=== PATIENT | male | born 1965 | race Caucasian/White ===

== ENCOUNTER 2023-05-30 10:38 | Emergency (ER) | payer MEDICARE, MEDICAID ==
[~2023-05-30] VITALS: Ht 180.3 cm; Wt 100.0 kg
[~2023-05-30 10:38] MED LIST: ASPI-10 PO; ATEN25TA PO; CLOZ100T68 PO; DOCU-361 PO; IBUP-1985 PO; LANTUS SQ; METF-438 PO; MULT-1085 PO; NATE60TA PO; ROYA500C PO; SIMV-42 PO; SITA100T15 PO; VITA1CAP PO
[2023-05-30 10:40] VITALS: BP 117/72; PULSE 91; RESP 18; TEMP 98.7; O2SAT 98
[2023-05-30] MEDS ORDERED: DOXYCYCLINE 100MG CAPSULE PO STA (11:32)
[2023-05-30] MEDS ORDERED: cephalexin 500mg capsule PO ONE (11:35)
[2023-05-30] MEDS ORDERED: CEPH250T PO (11:53)
[2023-05-30] MEDS ORDERED: DOXY-356 PO (11:53)
== END 2023-05-30 12:16 | disposition home or self-care (01) ==
LOC: ER 10:38
DX: S50.911A Unspecified superficial injury of right forearm, initial encounter (principal); E78.00 Pure hypercholesterolemia, unspecified; I10 Essential (primary) hypertension; E11.9 Type 2 diabetes mellitus without complications; Z88.5 Allergy status to narcotic agent; Z91.018 Allergy to other foods; Z79.82 Long term (current) use of aspirin; Z79.1 Long term (current) use of non-steroidal anti-inflammatories (NSAID); Z79.899 Other long term (current) drug therapy; X58.XXXA Exposure to other specified factors, initial encounter; Y93.89 Activity, other specified; Y92.89 Other specified places as the place of occurrence of the external cause; Y99.8 Other external cause status
CPT/HCPCS: 87070; 99283

== ENCOUNTER 2023-12-22 09:49 | Inpatient (IN) | payer MEDICARE, MEDICAID ==
[~2023-12-22] VITALS: Ht 182.9 cm; Wt 82.0 kg
[2023-12-22] MEDS ORDERED: heparin 10,000 units/1 ML INJ IV PRN (10:05)
[2023-12-22] MEDS ORDERED: heparin 10,000 units/1 ML INJ IV ONE ×2 (10:05→10:15)
[2023-12-22] MEDS ORDERED: heparin 25,000 UNIT/250ml bag 250 ML IV PRN (10:05)
[2023-12-22] MEDS: ceFAZolin/D5W- 1GM premix 50 ML IV ONE (10:31)
[2023-12-22] MEDS: normal saline 1000ML IV soln IVB ONE (10:31)
[2023-12-22] MEDS: TETanus/Pertussis (Acell)/Diphther VAC/PF (Tdap-Adult) 0.5ml syringe IMVAC ONE (10:33)
[2023-12-22 10:41] LABS: BASOPHILS % (AUTO) 0.1 % (0-1); EOSINOPHILS % (AUTO) 0 % (0-6); HEMATOCRIT 38.7 % (42.0-52.0); HEMOGLOBIN 12.9 g/dl (14.0-17.9); LYMPHOCYTES # (AUTO) 0.9 X10'3 (1.1-4.8); MEAN CORPUSCULAR HEMOGLOBIN 31.7 PG (27.0-31.0); MEAN CORPUSCULAR HGB CONC 33.4 g/dL (33.0-36.5); MEAN CORPUSCULAR VOLUME 94.8 FL (78-98); MEAN PLATELET VOLUME 8.3 FL (7.4-10.4); MONOCYTES # (AUTO) 0.9 X10'3 (0-0.9); MONOCYTES % (AUTO) 6.1 % (2-12); NEUTROPHILS # (AUTO) 13.3 X10'3 (1.8-7.7); NEUTROPHILS % (AUTO) 87.8 % (42-75); PLATELET COUNT 171 X10'3 (140-440); RED BLOOD COUNT 4.09 X10'6 (4.70-6.10); RED CELL DISTRIBUTION WIDTH 13.1 % (11.5-14.5); WHITE BLOOD COUNT 15.1 X10'3 (4.5-11.0)
[2023-12-22 10:54] LABS: APTT 26 SECONDS (22-32); INR 0.9 INR; PROTHROMBIN TIME 10.2 SECONDS (9.0-12.0)
[2023-12-22 10:56] LABS: ALBUMIN 3.4 G/DL (3.4-5.0); ANION GAP 16 (8-16); BLOOD UREA NITROGEN 19 MG/DL (7-18); BUN/CREATININE RATIO 21.3 (10.0-20.0); CALCIUM 8.1 MG/DL (8.5-10.1); CHLORIDE 102 MMOL/L (99-107); CREATININE 0.89 MG/DL (0.60-1.10); ETHANOL < 10 MG/DL (<10); GLUCOSE 121 MG/DL (70-104); POTASSIUM 4.2 MMOL/L (3.5-5.1); SODIUM 138 MMOL/L (135-145); TOTAL CARBON DIOXIDE 20.3 MMOL/L (24-32); eCRCL 99 ML/MIN; eGFR 88 ML/MIN
[2023-12-22] MEDS: normal saline 1000ml 1,000 ML IV ONE ×2 (13:34→18:48)
[2023-12-22 13:39] LABS: BILIRUBIN,URINE NEGATIVE (Neg); CLARITY,URINE CLEAR (Clear); COLOR,URINE YELLOW (Yellow); GLUCOSE, URINE NEGATIVE (Neg); KETONES,URINE >=80 mg/dl (Neg); LEUKOCYTE ESTERASE ,URINE NEGATIVE (Neg); NITRITES, URINE NEGATIVE (Neg); OCCULT BLOOD,URINE MODERATE (Neg); PH,URINE 5.5 (4.8-8.0); PROTEIN,URINE NEGATIVE (Neg); UROBILINOGEN,URINE 0.2 E.U/dL (0.2-1.0)
[2023-12-22 13:40] LABS: UA COLLECTION TYPE NON-SPECIFIED
[2023-12-22 13:47] LABS: URINE AMPHETAMINE SCREEN NEGATIVE (Neg); URINE BARBITUATE SCREEN NEGATIVE (Neg); URINE BENZODIAZEPINES SCREEN NEGATIVE (Neg); URINE CANNABINOID SCREEN NEGATIVE (Neg); URINE COCAINE SCREEN NEGATIVE (Neg); URINE METHADONE SCREEN NEGATIVE (Neg); URINE OPIATE SCREEN NEGATIVE (Neg); URINE PHENCYCLIDINE SCREEN NEGATIVE (Neg)
[2023-12-22 13:48] LABS: RBC,URINE 20-50 /HPF (0-2)
[2023-12-22 13:49] LABS: BACTERIA,URINE NONE SEEN /HPF (Neg); SQUAMOUS EPITHELIAL CELL,UR FEW /LPF (FEW)
[2023-12-22 13:51] LABS: WBC CLUMPS,URINE FEW /HPF (NEGATIVE)
[2023-12-22] MEDS: LIDOcaine 1% W/epiNEPHrine 1:100,000 20ml vial SQ ONE (13:59)
[2023-12-22 14:01] LABS: WBC,URINE 0-4 /HPF (0-4)
[2023-12-22 14:02] LABS: RENAL CELLS, URINE MODERATE /HPF
[2023-12-22 16:21] LABS: BASOPHILS % (AUTO) 0.2 % (0-1); EOSINOPHILS % (AUTO) 0 % (0-6); HEMATOCRIT 35.4 % (42.0-52.0); HEMOGLOBIN 11.8 g/dl (14.0-17.9); LYMPHOCYTES # (AUTO) 1.3 X10'3 (1.1-4.8); LYMPHOCYTES % (AUTO) 9.9 % (21-51); MEAN CORPUSCULAR HEMOGLOBIN 31.7 PG (27.0-31.0); MEAN CORPUSCULAR HGB CONC 33.4 g/dL (33.0-36.5); MONOCYTES % (AUTO) 7.2 % (2-12); NEUTROPHILS # (AUTO) 10.9 X10'3 (1.8-7.7); NEUTROPHILS % (AUTO) 82.7 % (42-75); PLATELET COUNT 154 X10'3 (140-440); RED BLOOD COUNT 3.73 X10'6 (4.70-6.10); RED CELL DISTRIBUTION WIDTH 13.5 % (11.5-14.5); WHITE BLOOD COUNT 13.2 X10'3 (4.5-11.0)
[2023-12-22] MEDS ORDERED: iohexol 350MG/ML 100ml bottle IV ONE (17:43)
[2023-12-22] MEDS: MESSAGE TO PHARMACY PO SCH (18:35)
[2023-12-22] MEDS ORDERED: SEMA2PEN SUBCUT (21:52)
[2023-12-22] MEDS ORDERED: INSU100I98 SUBCUT (21:53)
[2023-12-22] MEDS ORDERED: ondansetron/PF 4mg/2ml inj IV PRN (22:05)
[2023-12-22] MEDS ORDERED: magnesium 4gm in 100ml NS 100 ML IV PRN (22:05)
[2023-12-22] MEDS ORDERED: magnesium 2GM in 50ml NS 50 ML IV PRN (22:05)
[2023-12-22] MEDS ORDERED: potassium Cl 40MEQ/1/2NS 520ml 520 ML IV PRN (22:05)
[2023-12-22] MEDS: normal saline 1000ml 1,000 ML IV SCH (22:05)
[2023-12-22] MEDS ORDERED: acetaminophen 325mg tablet PO PRN (22:05)
[2023-12-22] MEDS ORDERED: potassium Cl 20 mEq SR tablet PO PRN ×2 (22:05)
[2023-12-22] MEDS: acetaminophen 325mg tablet PO ONE (22:25)
[2023-12-22 23:46] LABS: MAGNESIUM 1.7 MG/DL (1.5-2.4); PHOSPHORUS 3.7 MG/DL (2.3-4.5)
[2023-12-23 02:20] LABS: BASOPHILS % (AUTO) 0.2 % (0-1); EOSINOPHILS % (AUTO) 0 % (0-6); HEMATOCRIT 33.1 % (42.0-52.0); HEMOGLOBIN 11.3 g/dl (14.0-17.9); LYMPHOCYTES % (AUTO) 9.9 % (21-51); MEAN CORPUSCULAR HEMOGLOBIN 32.4 PG (27.0-31.0); MEAN CORPUSCULAR HGB CONC 34.1 g/dL (33.0-36.5); MEAN PLATELET VOLUME 8.2 FL (7.4-10.4); MONOCYTES # (AUTO) 0.8 X10'3 (0-0.9); MONOCYTES % (AUTO) 7.5 % (2-12); NEUTROPHILS # (AUTO) 8.4 X10'3 (1.8-7.7); NEUTROPHILS % (AUTO) 82.4 % (42-75); PLATELET COUNT 156 X10'3 (140-440); RED BLOOD COUNT 3.48 X10'6 (4.70-6.10); RED CELL DISTRIBUTION WIDTH 13.5 % (11.5-14.5); WHITE BLOOD COUNT 10.2 X10'3 (4.5-11.0)
[2023-12-23 02:22] LABS: ALANINE AMINOTRANSFERASE 43 U/L (12-78); ALBUMIN 3.1 G/DL (3.4-5.0); ALBUMIN/GLOBULIN RATIO 1.2 (1.1-1.5); ALKALINE PHOSPHATASE 56 IU/L (46-116); ANION GAP 14 (8-16); ASPARTATE AMINO TRANSFERASE 52 U/L (10-37); BILIRUBIN,TOTAL 0.5 MG/DL (0.1-1.0); BLOOD UREA NITROGEN 13 MG/DL (7-18); BUN/CREATININE RATIO 13.7 (10.0-20.0); CHLORIDE 105 MMOL/L (99-107); CREATININE 0.95 MG/DL (0.60-1.10); GLUCOSE 172 MG/DL (70-104); MAGNESIUM 1.9 MG/DL (1.5-2.4); POTASSIUM 4.5 MMOL/L (3.5-5.1); SODIUM 139 MMOL/L (135-145); TOTAL CARBON DIOXIDE 20.2 MMOL/L (24-32); TOTAL PROTEIN 5.6 G/DL (6.4-8.2); eCRCL 93 ML/MIN; eGFR 81 ML/MIN
[2023-12-23 03:07] VITALS: BP 135/79; PULSE 87; RESP 21; TEMP 98.1; O2SAT 98
[2023-12-23 06:00] VITALS: BP 130/73; PULSE 88; RESP 16; TEMP 98.4; O2SAT 96
[2023-12-23] MEDS ORDERED: azithromycin/NS 500mg/250ml 250 ML IV SCH (07:15)
[2023-12-23] MEDS: K and/or MAG REPLACEMENT MC SCH (08:00)
[2023-12-23] MEDS: pantoprazole 40 MG vial IV SCH (09:37)
[2023-12-23] MEDS: CefTRIAXone/D5W-Rocephin 1gm 50 ML IV SCH (09:37)
[2023-12-23 10:35] VITALS: BP 125/70; PULSE 90; RESP 18; TEMP 98.4; O2SAT 97
[2023-12-23] MEDS: azithromycin/NS 500mg/250ml 250 ML IV SCH (11:26)
[2023-12-23] MEDS ORDERED: DEXTROSE 15 GM of carb/4 tabs (each vial/BOTTLE has 4 tablets) PO PRN ×2 (13:35)
[2023-12-23] MEDS ORDERED: dextrose 50%-water 50ml dispensing syringe IV PRN (13:35)
[2023-12-23] MEDS ORDERED: glucagon, human recombinant 1mg kit SUBCUT PRN (13:35)
[2023-12-23] MEDS: MESSAGE TO PHARMACY PO ONE (14:06)
[2023-12-23 18:00] VITALS: BP 136/79; PULSE 93; RESP 16; TEMP 98.8; O2SAT 94
[2023-12-23] MEDS: PERFLUTREN PROTEIN-A MICROSPHR (Optison) 0.22 MG/ML 3ML VIAL IV ONE (19:20)
[2023-12-23] MEDS: insulin Lispro (HumaLOG) vial - multi-dose SQ SCH (19:43)
[2023-12-23 20:00] VITALS: RESP 16; O2SAT 100
[2023-12-23 22:00] VITALS: BP 127/70; PULSE 89; RESP 16; TEMP 98.6; O2SAT 92
[2023-12-23] MEDS: insulin glargine (Lantus) pen - multi-dose SQ SCH (22:18)
[2023-12-24 06:00] VITALS: BP 142/74; PULSE 89; RESP 18; TEMP 98.5; O2SAT 97
[2023-12-24 06:46] LABS: BASOPHILS % (AUTO) 0.4 % (0-1); EOSINOPHILS # (AUTO) 0.1 X10'3 (0-0.9); EOSINOPHILS % (AUTO) 0.8 % (0-6); HEMATOCRIT 29.2 % (42.0-52.0); HEMOGLOBIN 9.9 g/dl (14.0-17.9); LYMPHOCYTES # (AUTO) 1.3 X10'3 (1.1-4.8); MEAN CORPUSCULAR HEMOGLOBIN 32.2 PG (27.0-31.0); MEAN CORPUSCULAR VOLUME 94.7 FL (78-98); MONOCYTES # (AUTO) 0.9 X10'3 (0-0.9); MONOCYTES % (AUTO) 11.2 % (2-12); NEUTROPHILS # (AUTO) 5.7 X10'3 (1.8-7.7); NEUTROPHILS % (AUTO) 71.6 % (42-75); PLATELET COUNT 137 X10'3 (140-440); RED BLOOD COUNT 3.08 X10'6 (4.70-6.10); RED CELL DISTRIBUTION WIDTH 13.4 % (11.5-14.5)
[2023-12-24 07:01] LABS: ALANINE AMINOTRANSFERASE 38 U/L (12-78); ALBUMIN 2.7 G/DL (3.4-5.0); ALBUMIN/GLOBULIN RATIO 1.1 (1.1-1.5); ALKALINE PHOSPHATASE 58 IU/L (46-116); ANION GAP 10 (8-16); ASPARTATE AMINO TRANSFERASE 31 U/L (10-37); BILIRUBIN,TOTAL 0.4 MG/DL (0.1-1.0); BLOOD UREA NITROGEN 13 MG/DL (7-18); BUN/CREATININE RATIO 18.1 (10.0-20.0); CALCIUM 7.5 MG/DL (8.5-10.1); CHLORIDE 108 MMOL/L (99-107); CREATININE 0.72 MG/DL (0.60-1.10); GLUCOSE 166 MG/DL (70-104); MAGNESIUM 1.8 MG/DL (1.5-2.4); POTASSIUM 3.7 MMOL/L (3.5-5.1); SODIUM 142 MMOL/L (135-145); TOTAL CARBON DIOXIDE 24.2 MMOL/L (24-32); TOTAL PROTEIN 5.2 G/DL (6.4-8.2); eCRCL 123 ML/MIN; eGFR > 90 ML/MIN
[2023-12-24 08:00] VITALS: RESP 18
[2023-12-24 10:00] VITALS: BP 125/70; PULSE 85; RESP 12; TEMP 98.1; O2SAT 96
[2023-12-24] MEDS: LACOSAMIDE 50 MG TABLET PO ONE (10:10)
[2023-12-24] MEDS: fentaNYL/PF 50MCG/1 ML 2ML syringe IV STA (12:36)
[2023-12-24] MEDS: midazolam 1 mg/ML 2ml injection IV STA (12:37)
[2023-12-24 14:25] LABS: GLUCOSE,CSF 136 MG/DL (40-75); TOTAL PROTEIN,CSF 66 MG/DL (15-45)
[2023-12-24 14:35] LABS: APPEARANCE,CSF CLEAR; CSF RBC 173 /CU MM (0); CSF SUPERNATANT COLOR COLORLESS; CSF VOLUME 10 ML; TUBE# COUNTED 4
[2023-12-24 14:37] LABS: CSF WBC CT 2 /CU MM (0-5)
[2023-12-24 15:27] LABS: APPEARANCE,CSF CLEAR; CSF RBC 120 /CU MM (0); CSF SUPERNATANT COLOR COLORLESS; CSF VOLUME 10 ML; CSF WBC CT 2 /CU MM (0-5); TUBE# COUNTED 1
[2023-12-24 18:00] VITALS: BP 129/75; PULSE 64; RESP 24; TEMP 97.7; O2SAT 95
[2023-12-24] MEDS ORDERED: ibuprofen 200mg tablet PO PRN (18:35)
[2023-12-24] MEDS ORDERED: OZEMPIC 2 MG SQ SCH (18:35)
[2023-12-24] MEDS ORDERED: metFORMIN 500mg tablet PO SCH (20:00)
[2023-12-24] MEDS: docusate sod 250mg capsule PO SCH (21:00)
[2023-12-24] MEDS ORDERED: insulin glargine (Lantus) pen - multi-dose SQ SCH (21:00)
[2023-12-24] MEDS ORDERED: INSULIN GLARGINE YFGN SUBCUT SCH (21:00)
[2023-12-24 22:00] VITALS: BP 137/71; PULSE 60; RESP 22; TEMP 97.9; O2SAT 92
[2023-12-24] MEDS: LACOSAMIDE 50 MG TABLET PO SCH (22:30)
[2023-12-24] MEDS: clozapine 100mg tablet PO SCH (22:31)
[2023-12-24] MEDS: atorvastatin 10mg tablet PO SCH (22:31)
[2023-12-25 06:21] LABS: ALANINE AMINOTRANSFERASE 37 U/L (12-78); ALBUMIN 2.6 G/DL (3.4-5.0); ALKALINE PHOSPHATASE 61 IU/L (46-116); ANION GAP 6 (8-16); ASPARTATE AMINO TRANSFERASE 24 U/L (10-37); BILIRUBIN,TOTAL 0.4 MG/DL (0.1-1.0); BLOOD UREA NITROGEN 10 MG/DL (7-18); BUN/CREATININE RATIO 12.5 (10.0-20.0); CALCIUM 7.5 MG/DL (8.5-10.1); CHLORIDE 107 MMOL/L (99-107); GLUCOSE 190 MG/DL (70-104); MAGNESIUM 1.6 MG/DL (1.5-2.4); POTASSIUM 3.7 MMOL/L (3.5-5.1); SODIUM 141 MMOL/L (135-145); TOTAL CARBON DIOXIDE 28.1 MMOL/L (24-32); TOTAL PROTEIN 5.2 G/DL (6.4-8.2); eCRCL 110 ML/MIN; eGFR > 90 ML/MIN
[2023-12-25 06:25] LABS: BASOPHILS % (AUTO) 0.4 % (0-1); EOSINOPHILS # (AUTO) 0.2 X10'3 (0-0.9); EOSINOPHILS % (AUTO) 2.2 % (0-6); HEMATOCRIT 28.9 % (42.0-52.0); HEMOGLOBIN 9.7 g/dl (14.0-17.9); LYMPHOCYTES # (AUTO) 1.5 X10'3 (1.1-4.8); LYMPHOCYTES % (AUTO) 21.3 % (21-51); MEAN CORPUSCULAR HEMOGLOBIN 32.1 PG (27.0-31.0); MEAN CORPUSCULAR HGB CONC 33.7 g/dL (33.0-36.5); MEAN CORPUSCULAR VOLUME 95.2 FL (78-98); MEAN PLATELET VOLUME 8.3 FL (7.4-10.4); MONOCYTES # (AUTO) 0.7 X10'3 (0-0.9); NEUTROPHILS # (AUTO) 4.6 X10'3 (1.8-7.7); NEUTROPHILS % (AUTO) 66.1 % (42-75); PLATELET COUNT 140 X10'3 (140-440); RED BLOOD COUNT 3.03 X10'6 (4.70-6.10); RED CELL DISTRIBUTION WIDTH 13.1 % (11.5-14.5)
[2023-12-25 06:50] VITALS: BP 155/86; PULSE 87; RESP 16; TEMP 97.8; O2SAT 97
[2023-12-25] MEDS ORDERED: nateglinide 60mg tablet PO SCH (07:00)
[2023-12-25] MEDS: pantoprazole 40mg Tablet.DR PO SCH (07:30)
[2023-12-25] MEDS: aspirin 325mg tablet PO SCH (07:59)
[2023-12-25] MEDS: clozapine 100mg tablet PO SCH (07:59)
[2023-12-25] MEDS: atenolol 25mg tablet PO SCH (07:59)
[2023-12-25 08:00] VITALS: RESP 16
[2023-12-25] MEDS ORDERED: ROYAL JELLY PO SCH (08:00)
[2023-12-25] MEDS: multivitamins, therapeutics tablet PO SCH (08:00)
[2023-12-25] MEDS ORDERED: VITAMIN B COMPLEX PO SCH (08:00)
[2023-12-25] MEDS: nicotine 21mg patch - 24 hr TD SCH (08:00)
[2023-12-25 11:02] VITALS: BP 154/85; PULSE 69; RESP 15; TEMP 98.3; O2SAT 98
[2023-12-25] MEDS ORDERED: iohexol 350MG/ML 100ml bottle IV ONE (16:54)
[2023-12-25 18:00] VITALS: BP 139/77; PULSE 77; RESP 18; TEMP 98.4; O2SAT 94
[2023-12-25] MEDS ORDERED: morphine 2 MG/ML inj. syringe IV PRN (19:05)
[2023-12-25 22:00] VITALS: BP 131/79; PULSE 75; RESP 18; TEMP 98.6; O2SAT 96
[2023-12-26] MEDS: piperacillin/tazo 4.5gm/100ml 100 ML IV SCH (01:14)
[2023-12-26 06:00] VITALS: BP 142/84; PULSE 70; RESP 18; TEMP 98.5; O2SAT 96
[2023-12-26 08:30] LABS: BASOPHILS % (AUTO) 0.3 % (0-1); EOSINOPHILS # (AUTO) 0.1 X10'3 (0-0.9); EOSINOPHILS % (AUTO) 1.4 % (0-6); HEMATOCRIT 33.7 % (42.0-52.0); HEMOGLOBIN 11.5 g/dl (14.0-17.9); LYMPHOCYTES # (AUTO) 0.9 X10'3 (1.1-4.8); LYMPHOCYTES % (AUTO) 11.6 % (21-51); MEAN CORPUSCULAR HEMOGLOBIN 32.3 PG (27.0-31.0); MEAN PLATELET VOLUME 7.6 FL (7.4-10.4); MONOCYTES # (AUTO) 0.6 X10'3 (0-0.9); MONOCYTES % (AUTO) 7.6 % (2-12); NEUTROPHILS # (AUTO) 6.5 X10'3 (1.8-7.7); NEUTROPHILS % (AUTO) 79.1 % (42-75); PLATELET COUNT 176 X10'3 (140-440); RED BLOOD COUNT 3.55 X10'6 (4.70-6.10); RED CELL DISTRIBUTION WIDTH 13.2 % (11.5-14.5); WHITE BLOOD COUNT 8.2 X10'3 (4.5-11.0)
[2023-12-26 08:46] LABS: ALANINE AMINOTRANSFERASE 44 U/L (12-78); ALBUMIN 2.8 G/DL (3.4-5.0); ALBUMIN/GLOBULIN RATIO 0.9 (1.1-1.5); ALKALINE PHOSPHATASE 74 IU/L (46-116); ANION GAP 7 (8-16); ASPARTATE AMINO TRANSFERASE 17 U/L (10-37); BILIRUBIN,TOTAL 0.5 MG/DL (0.1-1.0); BLOOD UREA NITROGEN 10 MG/DL (7-18); BUN/CREATININE RATIO 12.5 (10.0-20.0); CALCIUM 7.7 MG/DL (8.5-10.1); CHLORIDE 103 MMOL/L (99-107); GLUCOSE 225 MG/DL (70-104); MAGNESIUM 1.6 MG/DL (1.5-2.4); POTASSIUM 3.8 MMOL/L (3.5-5.1); SODIUM 135 MMOL/L (135-145); TOTAL CARBON DIOXIDE 25.4 MMOL/L (24-32); TOTAL PROTEIN 5.9 G/DL (6.4-8.2); eCRCL 110 ML/MIN; eGFR > 90 ML/MIN
[2023-12-26] MEDS: acetaminophen 325mg tablet PO PRN (09:11)
[2023-12-26 10:00] VITALS: BP 128/65; PULSE 66; RESP 20; TEMP 98.1; O2SAT 93
[2023-12-26 18:00] VITALS: BP 102/62; PULSE 76; RESP 18; TEMP 98.3; O2SAT 93
[2023-12-26] MEDS: diatr meglu/diatrizoate 30ml oral sol.-(3 dose) bottle PO SCH (21:54)
[2023-12-26 22:00] VITALS: BP 103/66; PULSE 80; RESP 16; TEMP 98.4; O2SAT 96
[2023-12-27] MEDS: dextrose 50%-water 50ml dispensing syringe IV PRN (05:44)
[2023-12-27 06:00] VITALS: BP 102/62; PULSE 76; RESP 18; TEMP 98.3; O2SAT 93
[2023-12-27 06:28] LABS: BASOPHILS % (AUTO) 0.4 % (0-1); EOSINOPHILS # (AUTO) 0.1 X10'3 (0-0.9); EOSINOPHILS % (AUTO) 2.8 % (0-6); HEMATOCRIT 30.3 % (42.0-52.0); HEMOGLOBIN 10.7 g/dl (14.0-17.9); LYMPHOCYTES # (AUTO) 1.3 X10'3 (1.1-4.8); LYMPHOCYTES % (AUTO) 25.5 % (21-51); MEAN CORPUSCULAR HEMOGLOBIN 33.1 PG (27.0-31.0); MEAN CORPUSCULAR HGB CONC 35.2 g/dL (33.0-36.5); MEAN CORPUSCULAR VOLUME 94.1 FL (78-98); MEAN PLATELET VOLUME 7.6 FL (7.4-10.4); MONOCYTES # (AUTO) 0.5 X10'3 (0-0.9); MONOCYTES % (AUTO) 9.8 % (2-12); NEUTROPHILS # (AUTO) 3.2 X10'3 (1.8-7.7); NEUTROPHILS % (AUTO) 61.5 % (42-75); PLATELET COUNT 167 X10'3 (140-440); RED BLOOD COUNT 3.22 X10'6 (4.70-6.10); RED CELL DISTRIBUTION WIDTH 13.1 % (11.5-14.5); WHITE BLOOD COUNT 5.1 X10'3 (4.5-11.0)
[2023-12-27 06:57] LABS: ALANINE AMINOTRANSFERASE 36 U/L (12-78); ALBUMIN 2.5 G/DL (3.4-5.0); ALBUMIN/GLOBULIN RATIO 0.9 (1.1-1.5); ALKALINE PHOSPHATASE 63 IU/L (46-116); ANION GAP 3 (8-16); ASPARTATE AMINO TRANSFERASE 23 U/L (10-37); BILIRUBIN,TOTAL 0.4 MG/DL (0.1-1.0); BLOOD UREA NITROGEN 12 MG/DL (7-18); CALCIUM 7.9 MG/DL (8.5-10.1); CHLORIDE 107 MMOL/L (99-107); CREATININE 0.92 MG/DL (0.60-1.10); GLUCOSE 62 MG/DL (70-104); POTASSIUM 3.4 MMOL/L (3.5-5.1); SODIUM 140 MMOL/L (135-145); TOTAL CARBON DIOXIDE 29.7 MMOL/L (24-32); TOTAL PROTEIN 5.3 G/DL (6.4-8.2); eCRCL 96 ML/MIN; eGFR 84 ML/MIN
[2023-12-27 10:00] VITALS: BP 127/80; PULSE 72; RESP 18; TEMP 98.4; O2SAT 95
[2023-12-27] MEDS ORDERED: ibuprofen 200mg tablet PO PRN (15:35)
[2023-12-27] MEDS ORDERED: magnesium 4gm in 100ml NS 100 ML IV PRN (17:10)
[2023-12-27] MEDS ORDERED: potassium Cl 20 mEq SR tablet PO PRN (17:10)
[2023-12-27] MEDS ORDERED: potassium Cl 40MEQ/1/2NS 520ml 520 ML IV PRN (17:10)
[2023-12-27] MEDS ORDERED: magnesium 2GM in 50ml NS 50 ML IV PRN (17:10)
[2023-12-27 18:00] VITALS: BP 107/65; PULSE 92; RESP 18; TEMP 98.3; O2SAT 100
[2023-12-27] MEDS: K and/or MAG REPLACEMENT MC SCH (20:00)
[2023-12-27] MEDS: potassium Cl 20 mEq SR tablet PO PRN (20:56)
[2023-12-27 22:00] VITALS: BP 112/51; PULSE 90; RESP 18; TEMP 98.4; O2SAT 91
[2023-12-28 06:00] VITALS: BP 120/71; PULSE 81; RESP 18; TEMP 98.4; O2SAT 91
[2023-12-28 07:24] VITALS: RESP 16
[2023-12-28 10:10] LABS: BASOPHILS % (AUTO) 0.4 % (0-1); EOSINOPHILS # (AUTO) 0.1 X10'3 (0-0.9); EOSINOPHILS % (AUTO) 2.8 % (0-6); HEMATOCRIT 28.9 % (42.0-52.0); LYMPHOCYTES # (AUTO) 1.1 X10'3 (1.1-4.8); LYMPHOCYTES % (AUTO) 21.4 % (21-51); MEAN CORPUSCULAR HEMOGLOBIN 32.5 PG (27.0-31.0); MEAN CORPUSCULAR HGB CONC 34.4 g/dL (33.0-36.5); MEAN CORPUSCULAR VOLUME 94.4 FL (78-98); MEAN PLATELET VOLUME 7.9 FL (7.4-10.4); MONOCYTES # (AUTO) 0.5 X10'3 (0-0.9); MONOCYTES % (AUTO) 9.6 % (2-12); NEUTROPHILS # (AUTO) 3.4 X10'3 (1.8-7.7); NEUTROPHILS % (AUTO) 65.8 % (42-75); PLATELET COUNT 188 X10'3 (140-440); RED BLOOD COUNT 3.06 X10'6 (4.70-6.10); WHITE BLOOD COUNT 5.2 X10'3 (4.5-11.0)
[2023-12-28 10:12] LABS: ALANINE AMINOTRANSFERASE 46 U/L (12-78); ALBUMIN 2.5 G/DL (3.4-5.0); ALBUMIN/GLOBULIN RATIO 0.9 (1.1-1.5); ALKALINE PHOSPHATASE 77 IU/L (46-116); ANION GAP 7 (8-16); ASPARTATE AMINO TRANSFERASE 25 U/L (10-37); BILIRUBIN,TOTAL 0.2 MG/DL (0.1-1.0); CHLORIDE 107 MMOL/L (99-107); CREATININE 1.04 MG/DL (0.60-1.10); GLUCOSE 307 MG/DL (70-104); POTASSIUM 4.3 MMOL/L (3.5-5.1); SODIUM 140 MMOL/L (135-145); TOTAL CARBON DIOXIDE 25.9 MMOL/L (24-32); TOTAL PROTEIN 5.2 G/DL (6.4-8.2); eCRCL 85 ML/MIN; eGFR 73 ML/MIN
[2023-12-28 10:24] LABS: BLOOD UREA NITROGEN 17 MG/DL (7-18); BUN/CREATININE RATIO 16.3 (10.0-20.0)
[2023-12-28 11:49] VITALS: BP 95/55; PULSE 59; RESP 18; TEMP 98.9; O2SAT 95
[2023-12-28 12:47] VITALS: RESP 16; O2SAT 97
[2023-12-29] MEDS ORDERED: OZEMPIC 2 MG SQ SCH (08:00)
[2023-12-29 12:48] LABS: CSF WEST NILE VIRUS, IGG Negative (Negative); CSF WEST NILE VIRUS, IGM Negative (Negative)
[2024-01-01 15:33] LABS: LYME IGG P18 AB Absent (.); LYME IGG P23 AB Absent (.); LYME IGG P28 AB Absent (.); LYME IGG P30 AB Absent (.); LYME IGG P39 AB Absent (.); LYME IGG P41 AB Absent (.); LYME IGG P45 AB Absent (.); LYME IGG P58 AB Absent (.); LYME IGG P66 AB Absent (.); LYME IGG P93 AB Absent (.); LYME IGG WB INTERP Negative (.); LYME IGM P23 AB Absent (.); LYME IGM P39 AB Absent (.); LYME IGM P41 AB Absent (.); LYME IGM WB INTERP Negative (.)
== END 2023-12-28 16:43 | DRG 82 ==
LOC: ER 09:49 → ED HOLD 22:12 → ORTHO 4S 12-23 02:58
PROVIDERS: ADMIT Internal Medicine; ATTEND Family Medicine
PROC: 0HQ1XZZ Repair Face Skin, External Approach (ICD-10-PCS; 2023-12-22)
PROC: B3251ZZ Computerized Tomography (CT Scan) of Bilateral Common Carotid Arteries using Low Osmolar Contrast (ICD-10-PCS; 2023-12-22)
PROC: B32G1ZZ Computerized Tomography (CT Scan) of Bilateral Vertebral Arteries using Low Osmolar Contrast (ICD-10-PCS; 2023-12-22)
PROC: B32R1ZZ Computerized Tomography (CT Scan) of Intracranial Arteries using Low Osmolar Contrast (ICD-10-PCS; 2023-12-22)
PROC: B3281ZZ Computerized Tomography (CT Scan) of Bilateral Internal Carotid Arteries using Low Osmolar Contrast (ICD-10-PCS; 2023-12-22)
PROC: 009U3ZX Drainage of Spinal Canal, Percutaneous Approach, Diagnostic (ICD-10-PCS; principal; 2023-12-24)
PROC: 4A00X4Z Measurement of Central Nervous Electrical Activity, External Approach (ICD-10-PCS; 2023-12-24)
PROC: 4A00X4Z Measurement of Central Nervous Electrical Activity, External Approach (ICD-10-PCS; 2023-12-25)
PROC: BW211ZZ Computerized Tomography (CT Scan) of Abdomen and Pelvis using Low Osmolar Contrast (ICD-10-PCS; 2023-12-25)
PROC: 4A00X4Z Measurement of Central Nervous Electrical Activity, External Approach (ICD-10-PCS; 2023-12-26)
DX: S06.9XAA Unspecified intracranial injury with loss of consciousness status unknown, initial encounter (principal); G93.41 Metabolic encephalopathy; J69.0 Pneumonitis due to inhalation of food and vomit; D62 Acute posthemorrhagic anemia; S01.81XA Laceration without foreign body of other part of head, initial encounter; F20.9 Schizophrenia, unspecified; L08.9 Local infection of the skin and subcutaneous tissue, unspecified; E11.9 Type 2 diabetes mellitus without complications; E78.00 Pure hypercholesterolemia, unspecified; I10 Essential (primary) hypertension; R26.89 Other abnormalities of gait and mobility; I48.91 Unspecified atrial fibrillation; R29.6 Repeated falls; R45.1 Restlessness and agitation; W18.39XA Other fall on same level, initial encounter; Y93.89 Activity, other specified; Y92.89 Other specified places as the place of occurrence of the external cause; Y99.8 Other external cause status; Z88.5 Allergy status to narcotic agent; Z88.8 Allergy status to other drugs, medicaments and biological substances; Z79.82 Long term (current) use of aspirin; Z79.899 Other long term (current) drug therapy; Z91.018 Allergy to other foods; Z79.4 Long term (current) use of insulin
CPT/HCPCS: 36415; 70450; 70496; 70498; 70551; 71045; 72125; 74176; 74178; 80048; 80053; 80305; 80320; 81001; 82140; 82945; 82948; 83036; 83605; 83735; 84100; 84145; 84157; 84484; 85025; 85610; 85730; 86617; 86788; 86789; 87015; 87040; 87070; 87081; 89051; 90715; 92508; 92616; 93005; 93306; 95720; 96365; 97110; 97116; 97161; 97530; 99285; A4615; C1758; C9113; G0378; J0456; J0690; J0696; J1815; J2250; J2543; J3010; J3490; J7030; Q9963; Q9967

== ENCOUNTER 2024-06-14 10:47 | Outpatient (CLI) | payer MEDICARE, MEDICAID ==
[~2024-06-14 10:47] MED LIST changes: +CLOZ100T14 PO; -CLOZ100T68 PO; +INSU100I98 SUBCUT; +SEMA2PEN SUBCUT
== END 2024-06-14 23:59 | disposition home or self-care (01) ==
LOC: RAD 10:47
PROVIDERS: ATTEND Nurse Practitioner Psychiatric/Mental Health
DX: F20.0 Paranoid schizophrenia (principal); Z79.899 Other long term (current) drug therapy
CPT/HCPCS: 93005